=== PATIENT | female | born 1970 | race Caucasian/White ===

== ENCOUNTER 2020-03-18 07:46 | Outpatient (CLI) | payer BC, SELFPAY ==
--- NOTE | ~2020-03-18 | CT_ITS ---
EXAMINATION: CT chest w con DATE: 03/18/2020 08:15 INDICATION: Persistent cough TECHNIQUE: Transaxial computed tomographic images of the chest were obtained after the administration of 75 cc of Omnipaque 350 intravenous contrast. The dose-length product (DLP) was 191.68 mGy-cm. Ite rative reconstruction was used. COMPARISON: None FINDINGS: The lungs are free of acute opacities. There is no pleural effusion or pneumothorax. No pat hologically enlarged thoracic lymph nodes are identified. The heart size is normal. The visualized os seous structures are unremarkable. IMPRESSION: 1. No CT correlate for the patient's symptoms. Reviewed, dictated and finalized at location A.
== END 2020-03-18 07:47 | disposition home or self-care (01) ==
PROVIDERS: PCP Physician Assistant; Visit Provider Physician Assistant
DX: R05 Cough (principal)
CPT/HCPCS: 71260; Q9967

== ENCOUNTER 2020-05-06 09:42 | Outpatient (CLI) | payer BC, SELFPAY ==
--- NOTE | 2020-05-07 12:19 | WPDPFTINT ---
PFT Interpretation PFT Interpretation: This PFT met all criteria for ATS standards and reproducibility FEV/FVC pre bronchodilator 72% FEV1 99% FVC 101% FEF 25-75% is 65% TLC 105% RV 87% RV/TLC 29% DLCO 81% when adjusted for alveolar volume but not adjusted for hemoglobin Flow volume loops were normal Impression: Normal PFT. Possible small airway obstruction may be present. Clinical correlation is advised.
== END 2020-05-06 09:43 | disposition home or self-care (01) ==
PROVIDERS: PCP Physician Assistant; Visit Provider Physician Assistant
DX: R05 Cough (principal)
CPT/HCPCS: 94060; 94726; 94729

== ENCOUNTER 2020-10-29 16:22 | Outpatient (CLI) | payer BC, SELFPAY ==
--- NOTE | ~2020-10-29 | CT_ITS ---
EXAMINATION: CT abdomen pelvis w con DATE: 10/29/2020 17:33 INDICATION: Right lower quadrant abdominal pain. TECHNIQUE: Computed tomography (CT) of the abdomen and pelvis was performed with 100 mL Omnipaque-350 intravenous contrast. Automated exposure control and iterative reconstruction technique were employe d. The dose-length product was 740.76 mGy-cm. COMPARISON: None FINDINGS: Minimal atelectasis at the the periphery of the left lower lobe. Heart size is normal. No pericardial or pleural effusion. Liver, gallbladder, spleen, pancreas, bilateral adrenal glands and bilateral ki dneys are normal. There is mild right hydroureter with urothelial enhancement but without evident obs tructing stone or mass. Bowels including the appendix are normal. Bladder, retroverted uterus and kalli ateral adnexa are unremarkable. Trace amount of likely physiologic free fluid in the cul-de-sac. No a bscess or free intraperitoneal gas. No pathologically enlarged abdominal or pelvic lymphadenopathy. S mall fat-containing left inguinal hernia. 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 Bones are otherwise unremarkable. IMPRESSION: 1. Mild right hydroureter with mild urothelial enhancement but without evident obstructing stone or m ass or hydronephrosis. Correlate with urinalysis to exclude urinary tract infection. 2. No other acute intra-abdominal/pelvic process. Specifically normal gallbladder and appendix. Reviewed, dictated and finalized at location A. F ENGINEER RESEARCH IMPRESSION: 1. Mild right hydroureter with mild urothelial enhancement but without evident obstructing stone or mass or hydronephrosis. Correlate with urinalysis to exclu de urinary tract infection. 2. No other acute intra-abdominal/pelvic process. Specifically normal gallbladd er and appendix.
[2020-10-29 17:20] LABS: Estimated Glomerular Filt Rate 48
== END 2020-10-29 16:23 | disposition home or self-care (01) ==
PROVIDERS: PCP Physician Assistant; Visit Provider Physician Assistant
DX: R10.31 Right lower quadrant pain (principal); N13.4 Hydroureter
CPT/HCPCS: 74177; Q9967

== ENCOUNTER 2020-11-04 09:20 | Emergency (ER) | payer BC, SELFPAY ==
--- NOTE | ~2020-11-04 | US_ITS ---
EXAMINATION: US pelvic complete w TV DATE: 11/04/2020 11:25 INDICATION: Pelvic pain, history of endometrial ablation TECHNIQUE: Multiple transabdominal and endovaginal sonographic images of the pelvis were obtained. COMPARISON: CT, 10/29/2020 FINDINGS: The uterus measures 6.7 x 3.7 x 3.8 cm. The endometrial complex is ill-defined, likely rela janie to history of endometrial ablation. The right ovary measures 2.3 x 1.5 x 1.8 cm. The left ovary m easures 1.5 x 1.8 x 2.1 cm. There is normal vascular flow in the ovaries. There is no free fluid in t he pelvis. IMPRESSION: 1. No sonographic correlate for the patient's symptoms. Reviewed, dictated and finalized at location A. ING MACHINE OPERATOR
[2020-11-04 09:52] VITALS: BP 150/102; PULSE 110; RESP 18; TEMP 36.6; O2SAT 97
[2020-11-04] MEDS: SODIUM CHLORIDE 0.9% IV 1,000 ML 999 ML IV CONT (10:28)
[2020-11-04 10:42] LABS: Basophils Percent Auto 0.4 % (0.2-1.2); Eosinophils Absolute Auto 0.1 K/mm3 (0-0.3); Eosinophils Percent Auto 1.1 % (0-4.4); Hematocrit 42.9 % (37.0-47.0); Hemoglobin 14.5 g/dL (12.0-15.0); Immature Granulocyte Absolute 0.01 K/mm3 (0.00-0.031); Immature Granulocyte Percent A 0.2 % (0-0.5); Lymphocytes Absolute Auto 1.59 K/mm3 (0.9-3.2); Lymphocytes Percent Auto 28.1 % (18.3-44.2); Mean Corpuscular HGB Conc 33.8 g/dl (32-36); Mean Corpuscular Hemoglobin 29.4 pg (26-34); Mean Corpuscular Volume 86.8 fl (80-100); Monocytes Absolute Auto 0.4 K/mm3 (0.1-0.6); Monocytes Percent Auto 6.5 % (2.6-8.5); Neutrophils Absolute Auto 3.6 K/mm3 (1.3-6.7); Neutrophils Percent Auto 63.7 % (45.5-73.1); Platelet Count Result 307 k/mm3 (150-375); Red Blood Count 4.94 M/mm3 (4.2-5.4); Red Cell Distribution Width 13.2 % (11.5-14.5); White Blood Count 5.7 K/mm3 (4.5-10.0)
[2020-11-04 10:45] LABS: Add Urine Microscopic? YES; Appearance Urine Clear (Clear); Bacteria Urine Trace /hpf; Bilirubin Urine Negative (Negative); Blood Urine 1+ (Negative); Color Urine Straw (Yellow); Glucose Urine UA Negative (Negative); Ketones Urine Negative (Negative); Leukocyte Esterase Ur Negative LEU/UL (Negative); Nitrate Urine Negative (Negative); Protein Urine Negative (Negative); RBC Urine 0-2 /hpf (0-2); Specific Grav Ur 1.008 (1.001-1.035); Squamous Epithelial Cell Urine Rare /hpf (Few); Urobilinogen Urine Negative mg/dL (<2.0); WBC Urine 0-3 /hpf
[2020-11-04 10:57] LABS: Alanine Aminotransferase 18 U/L (4-35); Albumin Level 4.6 g/dL (3.5-5.1); Alkaline Phosphatase 75 U/L (38-126); Anion Gap 4 mmol/L (8-16); Aspartate Amino Transferase 26 U/L (14-36); Bilirubin,Total 0.5 mg/dL (0.2-1.3); Blood Urea Nitrogen 13 mg/dL (7-17); Calcium 9.4 mg/dL (8.4-10.2); Carbon Dioxide 34 mmol/L (22-30); Chloride 99 mmol/L (98-107); Estimated CRCL calculation 62 ml/min; Estimated Glomerular Filt Rate 59; Glucose 126 mg/dL (65-105); Lipase 65 U/L (23-300); Sodium 137 mmol/L (137-145)
--- NOTE | 2020-11-04 11:19 | ED.BACK ---
HPI - Back Pain/Injury General Chief Complaint: Back Pain/Injury Stated Complaint: lower back pain Time Seen by Provider: 11/04/20 09:24 History of Present Illness HPI Narrative: Patient is a 50-year-old female who presents to emergency department for evaluation of low back pain across the lower lumbar region worse in the midline that occasionally radiates into the sides patient also notes some suprapubic discomfort patient has been having the symptoms for 10 days patient presents per private vehicle no distress has seen her primary care for this had CAT scan of the abdomen pelvis with contrast this week and urinalysis with culture culture did not grow anything patient on arrival today notes mild discomfort in the suprapubic region and low back patient denies injury trauma or similar occurrence in the past. Patient denies any vaginal complaints or change in bowel habit or upper respiratory symptoms Related Data Home Medications Medication Instructions Recorded Confirmed cephalexin 500 mg 11/04/20 ciprofloxacin HCl 500 mg PO 11/04/20 triamterene-hydrochlorothiazid tablet 11/04/20 venlafaxine mg PO 11/04/20 Allergies Allergy/AdvReac Type Severity Reaction Status Date / Time sumatriptan Allergy Unknown LOCALIZED Unverified 11/04/20 10:01 SWELLING, THROAT SWELLING IMITREX Allergy Severe RESP Uncoded 11/04/20 10:28 DISTRESS Review of Systems Review of Systems: All systems reviewed & are unremarkable except as noted in HPI and below PMFSH Social History Social History (Updated 11/04/20 @ 11:22 by Du Walker PA-C) Smoking status: Never smoker Gender identity (if verbalized by the patient): Female Exam Narrative: Exam Narrative: GENERAL: Well-appearing, well-nourished, and in no acute distress. HEAD: Normocephalic, atraumatic. EYES: PERRLA and EOMI. ENT: Nares clear, no rhinorrhea or epistaxis. Mucous membranes moist. CHEST: Clear to auscultation. No respiratory distress. No wheezes rales or rhonchi HEART: Regular rate and rhythm. No murmur heard. Normal peripheral pulses. ABDOMEN: Soft, nontender, nondistended EXTREMITIES: Normal range of motion. No edema. Tenderness midline lumbar no deformities no rash SKIN: Warm, dry, no rash. NEURO: No focal deficits. Alert and oriented x3. Cranial nerves II through XII grossly intact PSYCH: Normal mood and affect. Course Course Emergency Course: Patient evaluated in the emergency department no high risk changes in the blood work or imaging will be treated as musculoskeletal back pain and referred to gynecology and urologist for further evaluation of her other symptoms patient is afebrile nontoxic-appearing no distress patient felt safe for outpatient reevaluation provided with reasons to return and agrees with this plan Vital Signs Vital signs: Vital Signs Temperature 97.8 F 11/04/20 09:52 Pulse Rate 110 H 11/04/20 09:52 Respiratory Rate 18 11/04/20 09:52 Blood Pressure 150/102 H 11/04/20 09:52 Pulse Oximetry 97 11/04/20 09:52 Temperature 97.8 F 11/04/20 09:52 Pulse Rate 96 11/04/20 12:07 Respiratory Rate 18 11/04/20 12:07 Blood Pressure 112/60 11/04/20 12:07 Pulse Oximetry 98 11/04/20 12:07 MDM - Back Pain/Injury MDM Narrative Medical decision making narrative: Patients pain is positional in nature and localized to back without signs of cord compression or cauda equina based on neurological exam, skeletal exam and history. No fever or other significant factors to suggest osteomyelitis or spinal epidural abscess. No pulsatile masses noted on exam. Patient ambulates with steady gait and is stable for outpatient management given case findings. Lab Data Result diagrams: 11/04/20 10:32 11/04/20 10:32 Labs: Lab Results 11/04/20 11/04/20 11/04/20 Range/Units 10:32 10:32 10:32 WBC 5.7 (4.5-10.0) K/mm3 RBC 4.94 (4.2-5.4) M/mm3 Hgb 14.5 (12.0-15.0) g/
[2020-11-04 12:07] VITALS: BP 112/60; PULSE 96; RESP 18; O2SAT 98
== END 2020-11-04 12:46 | disposition home or self-care (01) ==
PROVIDERS: Emergency Medicine Emergency Medical Services; Emergency Provider Emergency Medicine; PCP Physician Assistant
DX: M54.5 Low back pain (principal); R10.9 Unspecified abdominal pain
CPT/HCPCS: 36415; 76830; 76856; 80053; 81001; 83690; 85025; 96360; 96361; 99284; J7030

== ENCOUNTER 2022-01-17 14:05 | Outpatient (CLI) | payer BC, SELFPAY ==
--- NOTE | ~2022-01-17 | XR_ITS ---
EXAMINATION: XR abdomen/kub 1V INDICATION: Right flank pain TECHNIQUE: Supine views of the abdomen were obtained on 2 radiographs. COMPARISON: CT from today FINDINGS: The 2 mm right mid ureteral stone described on CT is not definitely identified. The bowel g as pattern is normal. The visualized lung bases are clear. IMPRESSION: 1. Right mid ureteral stone seen on CT not definitely identified. Reviewed, dictated and finalized at location A.
--- NOTE | ~2022-01-17 | CT_ITS ---
EXAMINATION: CT abdomen pelvis wo con DATE: 01/17/2022 15:02 INDICATION: Lower abdominal pain TECHNIQUE: Computed tomography (CT) of the abdomen and pelvis was performed without intravenous contr ast. The dose-length product (DLP) was 220.07 mGy-cm. Automated exposure control and iterative recons truction technique were employed. COMPARISON: 10/29/2020 FINDINGS: The lung bases are clear. The heart size is normal. The liver, spleen, pancreas, gallbladde r, and adrenal glands are normal. The kidneys are unremarkable. There is a 2 mm stone in the right mi d ureter which causes mild right hydroureter. No pathologically enlarged abdominal or pelvic lymph no kiah are identified. There is no free intraperitoneal gas or evidence of bowel obstruction. The append ix is normal. There is moderate lumbar spondylosis at L5-S1. IMPRESSION: 1. 2 mm stone in the right mid ureter causing mild right hydroureter. Reviewed, dictated and finalized at location A.
== END 2022-01-17 14:06 | disposition home or self-care (01) ==
PROVIDERS: PCP Physician Assistant; Visit Provider Nurse Practitioner Family
DX: R10.9 Unspecified abdominal pain (principal); M47.817 Spondylosis without myelopathy or radiculopathy, lumbosacral region; N20.1 Calculus of ureter
CPT/HCPCS: 74018; 74176

== ENCOUNTER → 2022-02-08 11:29 | Outpatient (CLI) | payer BC, SELFPAY ==
--- NOTE | ~2022-02-08 | CT_ITS ---
EXAMINATION: CT abdomen pelvis wo con DATE: 02/08/2022 11:45 INDICATION: Right ureteral stone TECHNIQUE: Computed tomography (CT) of the abdomen and pelvis was performed without intravenous contr ast. Automated exposure control and iterative reconstruction technique were employed. The dose-length product was 541.18 mGy-cm. COMPARISON: 02/13/2022 FINDINGS: Lung bases are clear. Heart size is normal. No pericardial or pleural effusion. Small sliding-type hi atal hernia. Liver, gallbladder, spleen, pancreas and bilateral adrenal glands are normal. Kidneys an d ureters are normal with no urolithiasis, hydroureteronephrosis or perinephric/ureteral stranding. P reviously seen non-2 mm mid right ureteral stone is no longer visualized and has likely passed. Bladd er is normal. Bowels including the appendix are normal. Bladder, retroflexed uterus and bilateral adn exa are unremarkable. No free intraperitoneal gas or fluid. No pathologically enlarged abdominal or p elvic lymphadenopathy. L5 spondylolysis with bilateral pars intra-articular is defects and 2 mm anter olisthesis on S1. IMPRESSION: 1. No urolithiasis or acute intra-abdominal/pelvic process. Reviewed, dictated and finalized at location B.
== END ==
PROVIDERS: PCP Physician Assistant; Visit Provider Urology
DX: N20.1 Calculus of ureter (principal); M43.06 Spondylolysis, lumbar region
CPT/HCPCS: 74176

== ENCOUNTER → 2022-04-19 13:21 | Outpatient (CLI) | payer BC, SELFPAY ==
--- NOTE | ~2022-04-19 | XR_ITS ---
XR hip LT min 2V DATE: 04/19/2022 13:56 INDICATION: Fall. Left hip injury, pain TECHNIQUE: AP and lateral views COMPARISON: None FINDINGS: No fracture or dislocation, avascular necrosis or bone destruction of the left hip. Left hi p joint space is well preserved. IMPRESSION: Negative left hip Reviewed, dictated and finalized at location B. IMPRESSION: Negative left hip
--- NOTE | ~2022-04-19 | XR_ITS ---
XR sacrum coccyx min 2V DATE: 04/19/2022 13:56 INDICATION: Fall. Sacroiliac pain. TECHNIQUE: AP, angled AP and lateral views of sacrum and coccyx COMPARISON: 02/08/2022 CT abdomen pelvis FINDINGS: Normal alignment at the pubic symphysis and sacroiliac joints. No fracture or bone destruct ion of the sacrum or coccyx is detected. Bilateral L5 pars interarticularis defects and grade 1 anterolisthesis at L5-S1 again noted. IMPRESSION: No fracture or bone destruction of sacrum or coccyx Bilateral L5 pars interarticularis defects with grade 1 anterolisthesis at L5-S1 Reviewed, dictated and finalized at location B. IMPRESSION: No fracture or bone destruction of sacrum or coccyx Bilateral L5 pars interarticularis defects with grade 1 anterolisthesis at L5-S 1
== END ==
PROVIDERS: PCP Physician Assistant; Visit Provider Physician Assistant
DX: T14.90XA Injury, unspecified, initial encounter (principal); M47.817 Spondylosis without myelopathy or radiculopathy, lumbosacral region
CPT/HCPCS: 72220; 73502

== ENCOUNTER 2022-08-09 12:45 | Outpatient (CLI) | payer BC, SELFPAY ==
[2022-08-09 13:14] LABS: Basophils Percent Auto 0.3 % (0.2-1.2); Eosinophils Absolute Auto 0.1 K/mm3 (0-0.3); Eosinophils Percent Auto 1.5 % (0-4.4); Hematocrit 37.8 % (37.0-47.0); Immature Granulocyte Absolute 0.01 K/mm3 (0.00-0.031); Immature Granulocyte Percent A 0.2 % (0-0.5); Lymphocytes Absolute Auto 2.08 K/mm3 (0.9-3.2); Lymphocytes Percent Auto 34.3 % (18.3-44.2); Mean Corpuscular HGB Conc 34.4 g/dl (32-36); Mean Corpuscular Volume 87.1 fl (80-100); Mean Platelet Volume 9.9 fl (7.4-10.4); Monocytes Absolute Auto 0.5 K/mm3 (0.1-0.6); Monocytes Percent Auto 8.6 % (2.6-8.5); Neutrophils Absolute Auto 3.4 K/mm3 (1.3-6.7); Neutrophils Percent Auto 55.1 % (45.5-73.1); Platelet Count Result 314 k/mm3 (150-375); Red Blood Count 4.34 M/mm3 (4.2-5.4); Red Cell Distribution Width 12.9 % (11.5-14.5); White Blood Count 6.1 K/mm3 (4.5-10.0)
--- NOTE | 2022-08-09 16:16 | WPDPFTINT ---
PFT Procedure Performed PFT Procedure Performed Spirometry with Pre/Post Bronchodilator Plethysmography (Lung Vol) Diffusing Cap (DLCO) Flow Vol Loop PFT Interpretation This is a pulmonary function test with pre and post-bronchodilator spirometry, plethysmography and diffusing capacity. The test was performed and results interpreted in accordance with the 2019 and 2005 ATS/ERS Task Force guidelines respectively using the Global Lung Function Initiative-2012 reference equations. Patient demonstrated good effort and cooperation. Reproducibility criteria were met. The quality of the pre bronchodilator spirometry maneuver was Grade A and post bronchodilator spirometry maneuver was Grade A. Findings: Spirometry: The contour the inspiratory and expiratory flow tracing are normal. The pre bronchodilator FVC is 3.74 L, 106% predicted. The pre bronchodilator FEV1 is 2.69 L, 96% predicted. The pre bronchodilator FEV1: FVC ratio is 72%. The post bronchodilator FVC is 3.73 L, representing no change. The post bronchodilator FEV1 is 2.64 L, representing a 2% decrease. The post bronchodilator FEV1: FVC ratio is 71%. Plethysmography: The total lung capacity is 5.33 L, 103% predicted. The functional residual capacity is 2.06 L, 71% predicted. The residual volume is 1.58 L, 84% predicted. Diffusing capacity: The diffusing capacity unadjusted for hemoglobin and carboxyhemoglobin is 20.8, 91% predicted. The diffusing capacity adjusted for alveolar volume is 4.20, 93% predicted. Impression: The spirometry is normal without evidence of an obstructive abnormality. There is no significant improvement after inhaling a single dose of albuterol. The lung volumes are normal. The diffusing capacity is normal. There are no prior studies for comparison
[2022-08-12 22:14] LABS: Immunoglobulin E 4 kU/L (<=114)
[2022-08-13 08:05] LABS: Immunoglobulin G, Serum 906 mg/dL (600-1640); Immunoglobulin G1 409 mg/dL (382-929); Immunoglobulin G2 391 mg/dL (241-700); Immunoglobulin G3 56 mg/dL (22-178); Immunoglobulin G4 9.2 mg/dL (4.0-86.0)
[2022-08-14 08:06] LABS: NIL 0.01; TB1-NIL 0.01; TB2-NIL 0.01
[2022-08-14 08:07] LABS: Quantiferon TB Plus, 1T Negative
[2022-08-14 16:47] LABS: Alpha-1-Antitrypsin, QN 156 mg/dL (83-199)
== END 2022-08-09 12:46 | disposition home or self-care (01) ==
LOC: ANHPFT 12:48
PROVIDERS: PCP Physician Assistant; Visit Provider Nurse Practitioner
DX: J45.909 Unspecified asthma, uncomplicated (principal)
CPT/HCPCS: 36415; 82103; 82104; 82784; 82785; 82787; 85025; 86003; 86480; 94060; 94726; 94729

== ENCOUNTER 2022-08-24 11:30 | Outpatient (CLI) | payer BC, SELFPAY ==
--- NOTE | ~2022-08-24 | XR_ITS ---
XR chest 2V DATE: 08/24/2022 11:45 INDICATION: Chronic cough TECHNIQUE: PA and lateral COMPARISON: 03/18/2020 CT chest FINDINGS: Normal heart size. No hilar or mediastinal enlargement. No pulmonary infiltrate or consolid ation, pleural effusion or pulmonary vascular congestion or pneumothorax. Mild thoracic dextroscoliosis. IMPRESSION: No active cardiopulmonary disease Reviewed, dictated and finalized at location B. ICATION SECURITY ARCHITECT
[2022-08-24 15:22] LABS: Basophils Absolute Auto 0.1 K/mm3 (0.0-0.1); Basophils Percent Auto 0.7 % (0.2-1.2); Eosinophils Absolute Auto 0.1 K/mm3 (0-0.3); Eosinophils Percent Auto 1.5 % (0-4.4); Hematocrit 38.5 % (37.0-47.0); Immature Granulocyte Absolute 0.03 K/mm3 (0.00-0.031); Immature Granulocyte Percent A 0.4 % (0-0.5); Lymphocytes Absolute Auto 2.16 K/mm3 (0.9-3.2); Lymphocytes Percent Auto 29.3 % (18.3-44.2); Mean Corpuscular HGB Conc 33.8 g/dl (32-36); Mean Corpuscular Hemoglobin 29.9 pg (26-34); Mean Corpuscular Volume 88.5 fl (80-100); Mean Platelet Volume 9.7 fl (7.4-10.4); Monocytes Absolute Auto 0.6 K/mm3 (0.1-0.6); Monocytes Percent Auto 8.1 % (2.6-8.5); Neutrophils Absolute Auto 4.4 K/mm3 (1.3-6.7); Platelet Count Result 328 k/mm3 (150-375); Red Blood Count 4.35 M/mm3 (4.2-5.4); Red Cell Distribution Width 13.1 % (11.5-14.5); White Blood Count 7.4 K/mm3 (4.5-10.0)
== END 2022-08-24 11:31 | disposition home or self-care (01) ==
PROVIDERS: PCP Physician Assistant; Visit Provider Nurse Practitioner
DX: R05.3 Chronic cough (principal)
CPT/HCPCS: 36415; 71046; 85025; 87070; 87205

== ENCOUNTER 2022-08-25 14:33 | Outpatient (CLI) | payer BC, SELFPAY | END 2022-08-25 14:34 | disposition home or self-care (01) | LOC: ANHLAB 14:36 | PROVIDERS: PCP Physician Assistant; Visit Provider Nurse Practitioner | DX: R05.3 Chronic cough (principal) | CPT/HCPCS: 87205 ==

== ENCOUNTER → 2022-09-20 10:49 | Outpatient (CLI) | payer BC, SELFPAY ==
--- NOTE | ~2022-09-20 | CT_ITS ---
CT Scan of the Chest without Contrast: Clinical Indication: Chest tightness, exposure to potentially harmful substance/entity Technique: Contiguous sections were acquired throughout the chest without intravenous contrast. Dose reduction technique was used on this scan by utilizing automated exposure control and iterative recon struction technique. The dose-length product (DLP) was 340.32 mGy-cm. COMPARISON: 03/18/2020 Findings: There is no evidence of any significant mediastinal, hilar or axillary lymphadenopathy. The mediastin al soft tissues appear normal. There is no evidence of pleural or pericardial effusion. The lungs are clear. No pulmonary nodules or infiltrates are noted. Images through the upper abdomen reveal no abnormalities. Impression: No significant abnormalities seen. Reviewed, dictated and finalized at location . COOK Impression: No significant abnormalities seen.
== END ==
PROVIDERS: PCP Physician Assistant; Visit Provider Nurse Practitioner
DX: R07.89 Other chest pain (principal); Z13.89 Encounter for screening for other disorder; X58.XXXA Exposure to other specified factors, initial encounter
CPT/HCPCS: 71250

== ENCOUNTER 2022-09-20 11:17 | Outpatient (CLI) | payer BC, SELFPAY ==
[2022-09-24 13:10] LABS: Blastomyces Antibody Negative (Negative); H Band Histoplasma Negative (Negative); M Band Histoplasma Negative (Negative)
[2022-09-27 16:11] LABS: Coccidioides Ab to F Ag (IgG) NEGATIVE; Coccidioides Ab to TP Ag (IgM) NEGATIVE
== END 2022-09-20 11:18 | disposition home or self-care (01) ==
LOC: ANHGOSHLAB 11:20
PROVIDERS: PCP Physician Assistant; Visit Provider Nurse Practitioner
DX: Z13.89 Encounter for screening for other disorder (principal); X58.XXXA Exposure to other specified factors, initial encounter
CPT/HCPCS: 36415; 86612; 86635; 86698; 87081

== ENCOUNTER 2022-09-26 08:50 | Outpatient (CLI) | payer BC, SELFPAY ==
--- NOTE | 2022-09-26 11:53 | WPDMETH ---
Methacholine Procedure Perform Procedure Performed Methacholine Challenge Methacholine Challenge Methacholine Challenge: This is a methacholine challenge test. The test was performed and interpreted in accordance with the 2017 ERS technical standard, endorsed by the ATS, using the GLI 2012 reference equations. Testing was performed with increasing doses of nebulized methacholine following a quadrupling dosage protocol. The methacholine dose was delivered via the [employer] nebulizer using a 1-minutes tidal breathing protocol. The best post-methacholine FEV1 values were used to determine the change from the post diluent FEV1. The delivered dose of methacholine was used to calculate the provocative dose causing a 20% fall in FEV1 (PD 20). Findings: Baseline FEV1 2.73 L, 97% predicted. Post diluent FEV1 2.75 L Post 1.81 mcg methacholine FEV1 2.68 L, decreased 3% Post 7.26 mcg methacholine FEV1 2.76 L, decreased 0% Post 29.03 mcg methacholine FEV1 2.73 L, decreased 1% Post 116.1 mcg methacholine FEV1 2.74 L, decreased 0% Post 464.4 mcg methacholine FEV1 2.68 L, decreased 3% Post albuterol nebulization FEV1 2.68 L Impression: The PD20 is > 400 mcg which is categorized as normal airway hyperresponsiveness. There are no prior methacholine challenge studies for comparison
== END 2022-09-26 08:51 | disposition home or self-care (01) ==
LOC: ANHPFT 08:53
PROVIDERS: PCP Physician Assistant; Visit Provider Nurse Practitioner
DX: J45.909 Unspecified asthma, uncomplicated (principal)
CPT/HCPCS: 94070; J7674

== ENCOUNTER 2024-08-20 14:55 | Outpatient (CLI) | payer OTHER, SELFPAY ==
--- NOTE | ~2024-08-20 | MR_ITS ---
MRI of the right knee Clinical history: Pain and swelling Technique: Coronal proton density and proton density-weighted images, sagittal proton-density and T2 fat-sat images, and axial proton-density fat-saturated images were acquired. Findings: Anterior and posterior cruciate ligaments are intact. Medial collateral ligament and the la teral collateral ligament complex are intact. Popliteus tendon is intact. Medial and lateral menisci are intact, without definite tear. There is probable intrasubstance degene rative signal of the anterior horn of the lateral meniscus. 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 There is patchy m oderate to high-grade chondromalacia of the femoral trochlea, especially centrally. There is moderate to high-grade chondral malacia the medial joint line. Minimal tricompartmental osteophytes are prese nt. Extensor mechanism is intact. Minimal joint effusion present. Small Arango cyst present. Impression: Moderate degenerative change, especially the patellofemoral and medial compartments, as above. Minimal joint effusion and small Arango's cyst. No ligamentous injury or meniscal tear evident. Reviewed, dictated and finalized at location . NSION SERVICE ADVISOR Impression: Moderate degenerative change, especially the patellofemoral and medial compartm ents, as above. Minimal joint effusion and small Arango's cyst. No ligamentous injury or meniscal tear evident.
== END 2024-08-20 14:56 | disposition home or self-care (01) ==
LOC: GOSHIMG 14:56
PROVIDERS: PCP Physician Assistant; Visit Provider Physician Assistant
DX: M71.21 Synovial cyst of popliteal space [Baker], right knee (principal); M17.11 Unilateral primary osteoarthritis, right knee; M25.461 Effusion, right knee
CPT/HCPCS: 73721